=== PATIENT | female | born 1980 | race Caucasian/White ===

== ENCOUNTER → 2019-10-10 | Outpatient (CLI) | payer OTHER | LOC: OD 10:04 | PROVIDERS: ATTEND Obstetrics & Gynecology | DX: L29.9 Pruritus, unspecified (principal) | CPT/HCPCS: 36415; 82239 ==

== ENCOUNTER 2019-10-14 11:14 | Outpatient (CLI) | payer OTHER ==
--- NOTE | 2019-10-14 12:13 | Non Stress Test Report ---
Non Stress Test Datetime Report Generated by CPN: 10/14/2019 12:13 DEMOGRAPHIC Test Number: 1 EGA NST: 36.2 INDICATION Indication for Study (NST) Other: AMA VITAL SIGNS Temperature - NST: 98.0 Pulse - NST: 87 RESP - NST: 18 NBPSYS NST: 133 NBPDIA NST: 74 MONITORING Monitor Explained: Monitor Explained; Test Explained; Patient Verbalized Understanding Time on Monitor: 10/14/2019 11:30 Time off Monitor: 10/14/2019 12:06 NST Duration: 36 NST INTERVENTIONS NST Interventions: PO Hydration; Reposition Patient Physician Notified NST: DR YOUNGER BABY A: [id number] BABY A Movement : Present Contraction Frequency : NONE FHR Baseline : 130 Accelerations : 15X15 Decelerations : None Variability : Moderate 6-25bpm NST Review: Meets Criteria for Reactive NST NST Review and Verified By : FERN Palomino NST Results: Reactive NST REPORT Report Trigger: Send Report
--- NOTE | 2019-10-14 14:00 | RADIOLOGY REPORT (SQ) ---
EXAM DESCRIPTION: U/S OB LIMITED COMPLETED DATE/TIME: 10/14/2019 1:37 pm REASON FOR STUDY: GDM HENRIK COMPARISON: None. TECHNIQUE: Limited transabdominal grayscale ultrasound for evaluation of specific requested obstetri jun parameters. LIMITATIONS: None. FINDINGS: CERVICAL LENGTH: Not visualized HENRIK: Total HENRIK 10.1 cm FHR: 180 beats per minute. PRESENTATION: Cephalic. PLACENTA: Anterior grade 2 ANATOMY: Not assessed OTHER: Estimated weight 2909 g, 48th percentile. Estimated gestational age by multiple measurements 36 weeks 3 days, Estimated due date 11/08/2019 IMPRESSION: LIMITED OBSTETRICAL ULTRASOUND WITH MEASURED PARAMETERS DELINEATED ABOVE. Trimester of : Third trimester - 28 weeks to delivery. TECHNICAL DOCUMENTATION: JOB ID: [id number] [employer]- All Rights Reserved Reading location - IP/workstation name: [email or web address]
== END 2019-10-14 13:55 | disposition home or self-care (01) ==
LOC: LC 11:14
PROVIDERS: ATTEND Obstetrics & Gynecology
PROC: 4A1HXCZ Monitoring of Products of Conception, Cardiac Rate, External Approach (ICD-10-PCS; principal; 2019-10-14)
DX: Z34.93 Encounter for supervision of normal pregnancy, unspecified, third trimester (principal)
CPT/HCPCS: 59025; 76815

== ENCOUNTER 2019-11-02 07:40 | Inpatient (IN) | payer OTHER ==
[2019-11-01 11:13] LABS: ABSOLUTE LYMPHOCYTES (AUTO) 1.8 10^3/uL (0.5-4.7); ABSOLUTE MONOCYTES (AUTO) 0.7 10^3/uL (0.1-1.4); ABSOLUTE NEUT (AUTO) 6.5 10^3/uL (1.7-8.2); BASOPHILS % (AUTO) 0.4 % (0-2); EOSINOPHILS % (AUTO) 0.5 % (0-6); HEMATOCRIT 35.9 % (36.0-47.0); HEMOGLOBIN 12.1 g/dL (12.0-15.5); LYMPHOCYTES % (AUTO) 19.7 % (13-45); MEAN CORPUSCULAR HEMOGLOBIN 27.6 pg (27.0-33.4); MEAN CORPUSCULAR HGB CONC 33.7 g/dL (32.0-36.0); MEAN CORPUSCULAR VOLUME 82 fl (80-97); MONOCYTES % (AUTO) 7.5 % (3-13); PLATELET COUNT 269 10^3/uL (150-450); RED BLOOD COUNT 4.38 10^6/uL (3.72-5.28); RED CELL DISTRIBUTION WIDTH 15.6 % (11.5-14.0); SEGMENTED NEUTROPHILS % (AUTO) 71.9 % (42-78); TOTAL CELLS COUNTED % (AUTO) 100 %
[2019-11-01 11:22] LABS: APPEARANCE,URINE SLIGHTLY-CLOUDY; BILIRUBIN,URINE NEGATIVE (NEGATIVE); COLOR,URINE YELLOW; GLUCOSE, URINE NEGATIVE (NEGATIVE); KETONES,URINE NEGATIVE (NEGATIVE); LEUKOCYTE ESTERASE,URINE MODERATE (NEGATIVE); NITRITE,URINE NEGATIVE (NEGATIVE); PROTEIN,URINE NEGATIVE (NEGATIVE); URINE SPECIFIC GRAVITY 1.014; UROBILINOGEN,URINE NEGATIVE mg/dL (<2.0)
[2019-11-01 11:57] LABS: URINE AMPHETAMINES SCREEN NEGATIVE; URINE BARBITURATES SCREEN NEGATIVE; URINE BENZODIAZEPINES SCREEN NEGATIVE; URINE COCAINE SCREEN NEGATIVE; URINE MARIJUANA (THC) SCREEN NEGATIVE; URINE METHADONE SCREEN NEGATIVE; URINE PHENCYCLIDINE SCREEN NEGATIVE
[~2019-11-02 07:40] MED LIST: CEFAZOLIN SODIUM 2 GM in DEXTROSE 5%-WATER 100 ML IV PRN; LACTATED RINGERS 1000 ML IV PRN; LIDOCAINE 0.5% INJ-PF (5 MG/ML) 50 ML SDV SUBCUT PRN; RINGERS SOLUTION,LACTATED 1,500 ML IV PRN
[2019-11-02] MEDS ORDERED: OXYTOCIN 10 UNIT/ML VIAL ONE (10:04)
[2019-11-02] MEDS ORDERED: CITRIC ACID/SODIUM CITRATE ORAL SOLN 15 ML UDCUP ONE (10:04)
[2019-11-02] MEDS ORDERED: ONDANSETRON HCL INJ/PF 4 MG/2 ML SDV ONE (10:05)
[2019-11-02] MEDS ORDERED: MIDAZOLAM 2 MG/2 ML INJ ONE (10:05)
[2019-11-02] MEDS ORDERED: FENTANYL CITRATE INJ/PF 100 MCG/2 ML AMPUL ONE ×2 (10:05→13:48)
[2019-11-02] MEDS ORDERED: OXYTOCIN/NORMAL SALINE 20 UNIT/1,000 ML RTUINJ ONE (10:05)
[2019-11-02] MEDS ORDERED: MEPERIDINE HCL/PF INJ 25 MG/1 ML DISP.SYRIN IV PRN (11:08)
[2019-11-02] MEDS ORDERED: FENTANYL CITRATE INJ/PF 100 MCG/2 ML AMPUL IV PRN ×3 (11:08)
[2019-11-02] MEDS ORDERED: MORPHINE SULFATE 10 MG/ML INJ IV PRN (11:08)
[2019-11-02] MEDS ORDERED: DIPHENHYDRAMINE HCL 50 MG/ML VIAL IV PRN (11:08)
[2019-11-02] MEDS ORDERED: PROMETHAZINE HCL INJ 25 MG/1 ML VIAL IV PRN ×2 (11:08→12:02)
[2019-11-02] MEDS ORDERED: SIMETHICONE 80 MG TAB.CHEW PO PRN (12:02)
[2019-11-02] MEDS ORDERED: MEASLES,MUMPS&RUBELLA VACC/PF 0.5 ML VIAL SUBCUT PRN (12:02)
[2019-11-02] MEDS ORDERED: OXYTOCIN/NORMAL SALINE 20 UNIT/1,000 ML RTUINJ IV PRN (12:02)
[2019-11-02] MEDS ORDERED: OXYCODONE-ACETAMINOPHEN 5-325 MG TABLET PO PRN (12:02)
[2019-11-02] MEDS ORDERED: HYDROMORPHONE HCL INJ/PF 2 MG/ML AMPULE IV PRN (12:02)
[2019-11-02] MEDS ORDERED: ACETAMINOPHEN 325 MG TABLET PO PRN (12:02)
[2019-11-02] MEDS ORDERED: DIPH/PERTUSS(ACELL)/TETANUS VAC/PF 0.5 ML SYR (>=10YO) IM PRN (12:02)
[2019-11-02] MEDS ORDERED: ACETAMINOPHEN 1,000 MG/100 ML RTUPB IV ONE (12:27)
[2019-11-02] MEDS ORDERED: OXYTOCIN 10 UNIT/ML VIAL IV PRN (12:31)
[2019-11-02] MEDS ORDERED: ACETAMINOPHEN 1,000 MG/100 ML RTUPB IV PRN (12:35)
[2019-11-02] MEDS ORDERED: ACETAMINOPHEN 100 ML IV SCH (13:00)
--- NOTE | 2019-11-02 13:24 | Operative Report ---
Operative Report DATE OF SURGERY: 11/02/19 PREOPERATIVE DIAGNOSIS: Transverse lie. Advanced maternal age. RH negat sp. Hashimotos thyroiditis. Polycystic ovarian disorder. Obesity POSTOPERATIVE DIAGNOSIS: Transverse lie. Advanced maternal age. RH negative. Hashimotos thyroiditis. Polycystic ovarian disorder. Obesity OPERATION: Primary section SURGEON: COSMO [facility] ANESTHESIA: Spinal TISSUE REMOVED OR ALTERED: Placenta COMPLICATIONS: None INTRAOPERATIVE FINDINGS: NOrmal appearing uterus, bilateral fallopian tubes and ovaries. Clear amniotic fluid-large amount. Nuchal cord x 4 PROCEDURE: IV fluids: per anesthesia record Urinary output: 250 cc Position: To recovery room in stable condition Description of procedure: The patient was taken to the operating room and spinal anesthesia was administered and found to be adequate. She was then placed on the OR table in the supine position with a slight leftward tilt. Patient was prepped and draped in usual sterile fashion. Ancef 2 gms was given IV prior to the procedure for infection prophylaxis. Timeout was taken. A Pfannenstiel skin incision was then made approximately 3 cm above the pubic symphysis and carried down to level the rectus fascia. The rectus fascia was then nicked in the midline with a scalpel and the fascial incision was extended laterally with use of curved Adams scissors. The rectus fascia was then grasped with 2 Kocker clamps elevated and the underlying rectus muscle was dissected off both bluntly and sharply. Any bleeding controlled with cautery. The rectus muscles were then split in the midline and the peritoneum was entered. The peritoneal incision was then extended by manually stretching the peritoneum. The bladder blade was positioned. Bladder flap created and bladder blade replaced. The bladder was noted to be out of harm's way. A scalpel was then used in the lower uterine for the hysterotomy, slowly until amniotomy was obtained a large amount of fluid was noted. The uterine incision was then manually stretched. The infant was noted to be transverse position. The head was delivered with minmal difficulty. Nuchal cord x4 noted and reduced. The shoulders and the rest of the body followed immediately. The cord was cut clamped and the was handed off to the nurse awaiting. Infant was crying prior to hand off. The placenta was manually delivered. Using a lap gauze the uterus was cleared of all clots and debris. The uterus was then exteriorized and a bladder blade was repositioned. The uterine incision was then closed with 0 Chromic suture in a running locked fashion. A second layer of the same suture was used in a running locked imbricated fashion. The uterine incision was inspected and noted to be hemostatic. The posterior aspect of the uterus was then inspected and anatomy was seen as above. The uterus was returned to its normal anatomic position within the abdominal cavity. Warm saline irrigation was used to clear all clots and debris from the abdomen. The uterine incision was inspected once more and noted to remain hemostatic. The bladder blade was removed and the peritoneum was closed with 2-0 chromic in a running fashion. The rectus muscles were then reapproximated and the rectus fascia was closed with a #1 PDS in a running fashion. The subcutane ous tissue was then inspected and any bleeding was controlled with Bovie electrocautery. The subcutaneous tissue was then closed with 2-0 Plain Gut suture in a running fashion. The skin was then closed with 3-0 Monocryl in a running subcuticular fashion. The skin incision was then clean dried and a sterile dressing was applied over the skin incision. All instrument sponge and needle counts were correct x3 for the procedure the patient tolerated the procedure well. She will proceed to recovery room in stable condition
[2019-11-02] MEDS: OXYCODONE-ACETAMINOPHEN 5-325 MG TABLET PO PRN ×2 (16:32→20:44)
[2019-11-02] MEDS: DOCUSATE SODIUM 100 MG CAPSULE PO SCH (17:45)
[2019-11-02] MEDS: IBUPROFEN 800 MG TABLET PO SCH (17:45)
[2019-11-03] MEDS: IBUPROFEN 800 MG TABLET PO SCH ×4 (00:02→17:38)
[2019-11-03] MEDS: OXYCODONE-ACETAMINOPHEN 5-325 MG TABLET PO PRN ×4 (02:14→22:31)
[2019-11-03 07:16] LABS: HEMATOCRIT 31.1 % (36.0-47.0); HEMOGLOBIN 10.6 g/dL (12.0-15.5); MEAN CORPUSCULAR HEMOGLOBIN 28.1 pg (27.0-33.4); MEAN CORPUSCULAR VOLUME 83 fl (80-97); PLATELET COUNT 223 10^3/uL (150-450); RED BLOOD COUNT 3.76 10^6/uL (3.72-5.28); RED CELL DISTRIBUTION WIDTH 15.6 % (11.5-14.0); WHITE BLOOD COUNT 10.8 10^3/uL (4.0-10.5)
[2019-11-03] MEDS: DOCUSATE SODIUM 100 MG CAPSULE PO SCH ×2 (09:34→17:38)
[2019-11-03] MEDS: PRENATAL VITAMIN W DHA CAPSULE PO SCH (09:34)
--- NOTE | 2019-11-03 09:43 | PDOC PROGRESS REPORT ---
Subjective-OB Progress Note for:: 11/03/19 Subjective: Doing well, sitting up in bed, hsb at BS, baby had NC x 4, pain under control, voiding, pasdsing gas Physical Exam (OB) Vital Signs: Temp Pulse Resp BP Pulse Ox 98.1 F 69 18 130/79 H 99 11/03/19 07:11 11/03/19 07:11 11/03/19 07:11 11/03/19 07:11 11/03/19 07:11 Intake & Output 11/02/19 11/03/19 11/04/19 06:59 06:59 06:59 Intake Total 400 Output Total 1900 Balance -1500 Weight 97.52 kg - Dressing Removed: No Incision: Dressing - Lochia Lochia Amount: Small 10-25 ml Lochia Color: Rubra/Red - Abdomen Description: Soft Hernia Present: No Fundal Description: Firm Fundal Height: u/u - u/2 Objective-Diagnostic Laboratory: 11/03/19 07:02 11/03/19 07:02 WBC 10.8 H RBC 3.76 Hgb 10.6 L Hct 31.1 L MCV 83 MCH 28.1 MCHC 34.0 RDW 15.6 H Plt Count 223 Assessment and Plan(PN) - Assessment and Plan (1) Status post primary low transverse section Is this a current diagnosis for this admission?: Yes (2) GDM (gestational diabetes mellitus) Qualifiers: Gestational diabetes mellitus control: oral hypoglycemic-controlled Is this a current diagnosis for this admission?: Yes (3) AMA (advanced maternal age) multigravida 35+ Qualifiers: Trimester: first trimester Qualified Code(s): O09.521 - Supervision of elderly multigravida, first trimester Is this a current diagnosis for this admission?: Yes (4) 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
[2019-11-03] MEDS ORDERED: METFORMIN HCL 500 MG TABLET PO ONE (10:30)
[2019-11-04] MEDS: IBUPROFEN 800 MG TABLET PO SCH ×3 (01:04→12:11)
[2019-11-04] MEDS: PRENATAL VITAMIN W DHA CAPSULE PO SCH (10:21)
[2019-11-04] MEDS: DOCUSATE SODIUM 100 MG CAPSULE PO SCH (10:21)
--- NOTE | 2019-11-04 11:20 | PDOC DISCHARGE SUMMARY ---
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 Is this a current diagnosis for this admission?: Yes (3) Status post primary low transverse section Is this a current diagnosis for this admission?: Yes (4) Delivery normal Is this a current diagnosis for this admission?: Yes (5) GDM (gestational diabetes mellitus) Is this a current diagnosis for this admission?: No (6) Is this a current diagnosis for this admission?: Yes - Additional Information Resuscitation Status: Full Code Discharge Diet: As Tolerated, Regular Discharge Activity: Activity As Tolerated, Bedrest, No Lifting Over 10 Pounds, Pelvic Rest [facility] [[facility] Prescriptions: Ibuprofen [Motrin 800 mg Tablet] 800 mg PO Q6 #60 tablet Oxycodone HCl/Acetaminophen [Percocet 5-325 mg Tablet] 1 tab PO Q4HP PRN #30 tablet PRN Reason: Pain Scale Of 4 Home Medications: Vit/Iron Fum/Folic AC [ Tablet] 1 each PO DAILY 12/16/15 Levothyroxine Sodium [Synthroid 0.05 mg Tablet] 0.05 mg PO DAILY 10/14/19 Metformin HCl [Metformin HCl ER] 500 mg PO DAILY 10/14/19 Ibuprofen [Motrin 800 mg Tablet] 800 mg PO Q6 #60 tablet 11/04/19 Oxycodone HCl/Acetaminophen [Percocet 5-325 mg Tablet] 1 tab PO Q4HP PRN #30 tablet 11/04/19 HPI Reason(s) for Admission: Ceasarean Section-Repeat Procedures: NST, Ultrasound Intrapartum Procedure(s): : Low Cervical, Transverse Hospital Course Hospital Course: routine Results Laboratory Results: WBC 10.8 10^3/uL (4.0-10.5) H 11/03/19 07:02 RBC 3.76 10^6/uL (3.72-5.28) 11/03/19 07:02 Hgb 10.6 g/dL (12.0-15.5) L 11/03/19 07:02 Hct 31.1 % (36.0-47.0) L 11/03/19 07:02 MCV 83 fl (80-97) 11/03/19 07:02 MCH 28.1 pg (27.0-33.4) 11/03/19 07:02 MCHC 34.0 g/dL (32.0-36.0) 11/03/19 07:02 RDW 15.6 % (11.5-14.0) H 11/03/19 07:02 Plt Count 223 10^3/uL (150-450) 11/03/19 07:02 Lymph % (Auto) 19.7 % (13-45) 11/01/19 10:40 [place] % (Auto) 7.5 % (3-13) 11/01/19 10:40 Eos % (Auto) 0.5 % (0-6) 11/01/19 10:40 Baso % (Auto) 0.4 % (0-2) 11/01/19 10:40 Absolute Neuts (auto) 6.5 10^3/uL (1.7-8.2) 11/01/19 10:40 Absolute Lymphs (auto) 1.8 10^3/uL (0.5-4.7) 11/01/19 10:40 Absolute Monos (auto) 0.7 10^3/uL (0.1-1.4) 11/01/19 10:40 Absolute Eos (auto) 0.0 10^3/uL (0.0-0.6) 11/01/19 10:40 Absolute Basos (auto) 0.0 10^3/uL (0.0-0.2) 11/01/19 10:40 Seg Neutrophils % 71.9 % (42-78) 11/01/19 10:40 Urine Color YELLOW 11/01/19 10:30 Urine Appearance SLIGHTLY-CLOUDY 11/01/19 10:30 Urine pH 7.0 (5.0-9.0) 11/01/19 10:30 Ur Specific [place] 1.014 11/01/19 10:30 Urine Protein NEGATIVE mg/dL (NEGATIVE) 11/01/19 10:30 Urine Glucose (UA) NEGATIVE mg/dL (NEGATIVE) 11/01/19 10:30 Urine Ketones NEGATIVE mg/dL (NEGATIVE) 11/01/19 10:30 Urine Blood NEGATIVE (NEGATIVE) 11/01/19 10:30 Urine Nitrite NEGATIVE (NEGATIVE) 11/01/19 10:30 Urine Bilirubin NEGATIVE (NEGATIVE) 11/01/19 10:30 Urine Urobilinogen NEGATIVE mg/dL (<2.0) 11/01/19 10:30 Ur Leukocyte Esterase MODERATE (NEGATIVE) H 11/01/19 10:30 Urine WBC (Auto) 5 /HPF 11/01/19 10:30 Urine RBC (Auto) 1 /HPF 11/01/19 10:30 Urine Bacteria (Auto) TRACE /HPF 11/01/19 10:30 Squamous Epi Cells Auto 14 /HPF 11/01/19 10:30 Urine Mucus (Auto) RARE /LPF 11/01/19 10:30 Urine Ascorbic Acid NEGATIVE (NEGATIVE) 11/01/19 10:30 Urine Opiates Screen NEGATIVE 11/01/19 10:30 Urine Methadone Screen NEGATIVE 11/01/19 10:30 Ur Barbiturates Screen NEGATIVE 11/01/19 10:30 Ur Phencyclidine Scrn NEGATIVE 11/01/19 10:30 Ur Amphetamines Screen NEGATIVE 11/01/19 10:30 U Benzodiazepines Scrn NEGATIVE 11/01/19 10:30 Urine Cocaine Screen NEGATIVE 11/01/19 10:30 U Marijuana (THC) Screen NEGATIVE 11/01/19 10:30 Blood Type A NEGATIVE 11/01/19 10:40 Antibody Screen NEGATIVE 11/01/19 10:40 Plan Health Concerns: Hx of Hypothyroidism and diabetes Plan of Treatment: d/c home, pt to f/u in one week for incision check with TEJA
[2019-11-04 12:42] VITALS: BP 130/70
== END 2019-11-04 13:55 | disposition home or self-care (01) | DRG 788 ==
LOC: 2S 07:40
PROVIDERS: ADMIT Obstetrics & Gynecology; ATTEND Obstetrics & Gynecology
PROC: 10D00Z1 Extraction of Products of Conception, Low, Open Approach (ICD-10-PCS; principal; 2019-11-02 10:45)
DX: O24.425 Gestational diabetes mellitus in childbirth, controlled by oral hypoglycemic drugs (principal); O99.284 Endocrine, nutritional and metabolic diseases complicating childbirth; E06.3 Autoimmune thyroiditis; O32.2XX0 Maternal care for transverse and oblique lie, not applicable or unspecified; O69.81X0 Labor and delivery complicated by cord around neck, without compression, not applicable or unspecified; O99.214 Obesity complicating childbirth; E66.9 Obesity, unspecified; E28.2 Polycystic ovarian syndrome; Z28.21 Immunization not carried out because of patient refusal; Z79.899 Other long term (current) drug therapy; Z79.84 Long term (current) use of oral hypoglycemic drugs; Z79.890 Hormone replacement therapy; Z88.6 Allergy status to analgesic agent; Z88.0 Allergy status to penicillin; Z91.013 Allergy to seafood; Z88.8 Allergy status to other drugs, medicaments and biological substances; Z91.048 Other nonmedicinal substance allergy status; Z37.0 Single live birth
CPT/HCPCS: 1961; 36415; 59025; 80307; 81001; 85025; 85027; 86850; 86900; 86901; 94799; J0131; J0690; J2250; J2405; J2590; J3010; J3490; J7060; J7120